=== PATIENT | female | born 1965 | race African-American/Black ===

== ENCOUNTER 2016-12-22 23:06 | Emergency (ER) | payer BC ==
[~2016-12-22] VITALS: Ht 160 cm; Wt 78.7 kg
[~2016-12-22 23:06] MED LIST: ATENOLOL/CHLOR1 EAC1 PO; ATORVASTATIN CA40 MG PO; CALCIUM PO; DAILY MULTIPLE1 EACH PO; NAPROSYN500 MG PO; NORCO 5/3251 TABLET PO; OMEGA 3 500 SO1 EACH PO; POTASSIUM PO; VIVELLE-DOT0.1 MG TD
[2016-12-23 02:57] LABS: HEMATOCRIT 35.5 % (36.0-46.0); MCH 29.9 PG (29.0-34.0); MCHC 33.8 G/DL (30.0-36.0); MCV 88.3 FL (83-99); MEAN PLAT.VOLUME 9.2 uM^3 (9.5-12.4); PLATELET COUNT 277 K/uL (156-360); RBC DIS.WIDTH-CV 11.9 % (11.8-14.6); RBC DIS.WIDTH-SD 38.6 % (39-53); RED BLOOD COUNT 4.02 M/uL (3.80-5.20); WHITE BLOOD COUNT 4.6 K/uL (4.1-10.2)
[2016-12-23 03:07] LABS: D-DIMER ELISA 0.35 mg/L FEU (< 0.57); PROTHROMBIN TIME 10.5 (9.2-11.2); PTT 25.9 (25-32)
[2016-12-23 03:10] LABS: GLUCOSE 104 mg/dL (70-99)
[2016-12-23 03:14] LABS: GFR ESTIMATE (CALCULATED) > 59 mL/min/
[2016-12-23 03:15] LABS: TROP-I INTERPRETATION NEGATIVE; TROPONIN-I < 0.01 ng/mL (0.0-0.30); UREA NITROGEN (BUN) 18 mg/dL (9-23)
[2016-12-23 03:24] LABS: QUANTITATIVE HCG < 4.0 MIU/ML
[2016-12-23] MEDS ORDERED: PERCOCET 5/31 TABLET PO (03:47)
[2016-12-23] MEDS ORDERED: KEFLEX500 MG PO (03:47)
[2016-12-23 04:00] LABS: CHLORIDE 101 mEq/L (99-109); POTASSIUM 3.5 mEq/L (3.7-5.4); SODIUM 139 mEq/L (136-147)
[2016-12-23 04:03] VITALS: BP 153/105
[2016-12-23 04:03] LABS: ANION GAP 9 MEQ/L (2-14)
== END 2016-12-23 04:03 | disposition home or self-care (01) ==
LOC: EME 23:06
PROVIDERS: Emergency Medicine
DX: N61.0 Mastitis without abscess (principal); E78.5 Hyperlipidemia, unspecified; I10 Essential (primary) hypertension
CPT/HCPCS: 71010; 71250; 80048; 84484; 84702; 85027; 85379; 85610; 85730; 93005; 99281; 99285; J2270; J2405

== ENCOUNTER 2017-03-03 16:42 | Emergency (ER) | payer BC ==
[~2017-03-03] VITALS: Ht 160 cm; Wt 79.2 kg
[~2017-03-03 16:42] MED LIST changes: +KEFLEX500 MG PO; +PERCOCET 5/31 TABLET PO
[2017-03-03] MEDS ORDERED: NAPROXEN500 MG PO (19:13)
[2017-03-03] MEDS ORDERED: VALIUM5 MG PO (19:13)
[2017-03-03 19:37] VITALS: BP 132/86
== END 2017-03-03 19:38 | disposition home or self-care (01) ==
LOC: EME 16:42
DX: M62.838 Other muscle spasm (principal); M54.2 Cervicalgia; I10 Essential (primary) hypertension; Z85.3 Personal history of malignant neoplasm of breast; Z90.11 Acquired absence of right breast and nipple
CPT/HCPCS: 72040; 99281; 99284; J1885; J8540

== ENCOUNTER 2017-09-04 17:24 | Emergency (ER) | payer BC ==
[~2017-09-04] VITALS: Ht 160 cm; Wt 82.8 kg
[~2017-09-04 17:24] MED LIST changes: +NAPROXEN500 MG PO; +VALIUM5 MG PO
[2017-09-04 22:00] LABS: HEMATOCRIT 34.1 % (36.0-46.0); HEMOGLOBIN 11.6 G/DL (11.9-15.5); MCH 29.9 PG (29.0-34.0); MCV 87.9 FL (83-99); PLATELET COUNT 298 K/uL (156-360); RBC DIS.WIDTH-CV 12.1 % (11.8-14.6); RBC DIS.WIDTH-SD 39.1 % (39-53); RED BLOOD COUNT 3.88 M/uL (3.80-5.20)
[2017-09-04 22:14] LABS: CHLORIDE 102 mEq/L (99-109); POTASSIUM 3.3 mEq/L (3.7-5.4); SODIUM 139 mEq/L (136-147)
[2017-09-04 22:15] LABS: GLUCOSE 126 mg/dL (70-99)
[2017-09-04 22:20] LABS: CREATININE 0.8 mg/dL (0.6-1.3); GFR ESTIMATE (CALCULATED) > 59 mL/min/; UREA NITROGEN (BUN) 15 mg/dL (9-23)
[2017-09-04] MEDS ORDERED: MOTRIN600 MG PO (22:32)
[2017-09-04 22:50] VITALS: BP 144/95
== END 2017-09-04 22:51 | disposition home or self-care (01) ==
LOC: EME 17:24
PROVIDERS: Nurse Practitioner Family
DX: R51 Headache (principal); R42 Dizziness and giddiness; R11.0 Nausea; M79.1 Myalgia; R79.82 Elevated C-reactive protein (CRP); H65.92 Unspecified nonsuppurative otitis media, left ear; I10 Essential (primary) hypertension; E78.5 Hyperlipidemia, unspecified; Z85.3 Personal history of malignant neoplasm of breast; Z90.710 Acquired absence of both cervix and uterus; Z79.890 Hormone replacement therapy
CPT/HCPCS: 70450; 80048; 85027; 99281; 99285; J1200; J1885; J2765; J7030

== ENCOUNTER 2017-09-10 07:41 | Emergency (ER) | payer BC ==
[~2017-09-10] VITALS: Ht 160 cm; Wt 81.5 kg
[~2017-09-10 07:41] MED LIST changes: +MOTRIN600 MG PO
[2017-09-10 08:21] LABS: HEMATOCRIT 35.9 % (36.0-46.0); HEMOGLOBIN 12.2 G/DL (11.9-15.5); MCV 85.3 FL (83-99); PLATELET COUNT 305 K/uL (156-360); RBC DIS.WIDTH-CV 11.9 % (11.8-14.6); RBC DIS.WIDTH-SD 36.7 % (39-53); RED BLOOD COUNT 4.21 M/uL (3.80-5.20)
[2017-09-10 08:29] LABS: ALBUMIN 4.3 g/dL (3.2-4.8); CHLORIDE 100 mEq/L (99-109); POTASSIUM 3.8 mEq/L (3.7-5.4); SODIUM 139 mEq/L (136-147)
[2017-09-10 08:31] LABS: GLUCOSE 110 mg/dL (70-99)
[2017-09-10 08:32] LABS: TOTAL PROTEIN 7.7 g/dL (6.4-8.3)
[2017-09-10 08:33] LABS: TOTAL BILIRUBIN 0.5 mg/dL (0.0-1.0)
[2017-09-10 08:35] LABS: ALKALINE PHOSPHATASE 94 IU/L (3-129); CREATININE 0.7 mg/dL (0.6-1.3); GFR ESTIMATE (CALCULATED) > 59 mL/min/
[2017-09-10 08:36] LABS: UREA NITROGEN (BUN) 15 mg/dL (9-23)
[2017-09-10 08:37] LABS: AST (GOT) 13 IU/L (2-34)
[2017-09-10 08:38] LABS: ALT (GPT) 10 IU/L (3-49); LIPASE 19 U/L (1.0-51.0)
[2017-09-10 08:42] LABS: APPEARANCE CLOUDY ((CLEAR)); BILIRUBIN NEGATIVE; BLOOD SMALL; COLOR YELLOW ((YELLOW)); GLUCOSE (STRIP) NEGATIVE; KETONES NEGATIVE; LEUKOCYTES SMALL; NITRITE NEGATIVE; PROTEIN (STRIP) NEGATIVE; SPECIFIC GRAVITY 1.021 (1.000-1.030); UROBILINOGEN 0.2 MG/DL (0.2-1.0)
[2017-09-10 09:01] LABS: BACTERIA 1+ /HPF; EPITHELIAL CELLS 1+ /HPF; MUCUS 2+ /LPF; RED BLOOD CELLS 0-5 /HPF (0-5)
[2017-09-10] MEDS ORDERED: MACROBID100 MG PO (10:27)
[2017-09-10] MEDS ORDERED: LEVSIN-SL0.125 MG SL (10:27)
[2017-09-10] MEDS ORDERED: ZOFRAN ODT4 MG PO (10:27)
[2017-09-10 11:03] VITALS: BP 128/85
== END 2017-09-10 11:14 | disposition home or self-care (01) ==
LOC: EME 07:41
PROVIDERS: Nurse Practitioner Family
DX: N39.0 Urinary tract infection, site not specified (principal); J45.909 Unspecified asthma, uncomplicated; E78.5 Hyperlipidemia, unspecified; I10 Essential (primary) hypertension; Z85.3 Personal history of malignant neoplasm of breast; Z90.13 Acquired absence of bilateral breasts and nipples; Z90.710 Acquired absence of both cervix and uterus
CPT/HCPCS: 74177; 80053; 81003; 83690; 85027; 93005; 99281; 99285; J7030